=== PATIENT | female | born 1950 ===

== ENCOUNTER 2018-07-11 07:17 | Day surgery (SDC) | payer OTHER ==
[~2018-07-11 07:17] MED LIST: GABAPENTIN400 MG PO; LOSARTAN-HCTZ1 EAC2 PO; METFORMIN HCL500 MG PO; PAXIL20 MG PO; SIMVASTATIN10 MG PO; TOPROL XL100 M1 PO
== END 2018-07-11 13:40 | disposition home or self-care (01) ==
LOC: EDBD → CIR.AMB 07:17
DX: D24.2 Benign neoplasm of left breast (principal)